=== PATIENT | male | born 1980 | race American Indian/Alaskan Native ===

== ENCOUNTER 2018-05-31 21:55 | Emergency (ER) | payer MEDICARE ==
--- NOTE | 2018-05-31 22:28 | Emergency Department Report ---
ED Psych HPI - General Chief Complaint: Psych Stated Complaint: MH Time Seen by Provider: 05/31/18 22:13 Source: patient Mode of arrival: Ambulatory - History of Present Illness Initial Comments: Mr. Blackmon is a pleasant healthy 37-year-old male with history of schizoaffective disorder who has suicidal ideation. She has the persistent urge to cut himself with broken glass. He states that he is able to resist the urge to harm himself. He desires to be placed at [facility]. He denies other medical problems. He does smoke tobacco. Denies any alcohol or drug use. His mother has history of mental illness. His former psychiatrist Dr. Elliott. Medications include Wellbutrin, lithium, Risperdal. He has not taken these medications in 1 week. He states he does not like how they make him feel. MD Complaint: suicidal ideation -: days(s) (several) Associated Psychiatric Symptoms: suicidal ideation Quality: constant Context: not taking psychiatric Associated Symptoms: denies other symptoms - Related Data Home Medications Medication Instructions Recorded Confirmed Last Taken No Known Home Medications [No 05/31/18 05/31/18 Unknown Reported Home Medications] Allergies Allergy/AdvReac Type Severity Reaction Status Date / Time No Known Allergies Allergy Verified 05/31/18 22:33 ED Review of Systems ROS: Stated complaint: MH Other details as noted in HPI Comment: All other systems reviewed and negative Constitutional: denies: fever, malaise Respiratory: denies: cough Cardiovascular: denies: chest pain ED Past Medical Hx - Past Medical History Previous Medical History?: Yes Hx Psychiatric Treatment: Yes (Schizo affective) - Surgical History Past Surgical History?: No - Social History Smoking Status: Current Every Day Smoker Substance Use Type: Alcohol - Medications Home Medications: Home Medications Medication Instructions Recorded Confirmed Last Taken Type No Known Home Medications [No 05/31/18 05/31/18 Unknown History Reported Home Medications] ED Physical Exam - General Limitations: No Limitations General appearance: alert, in no apparent distress - Head Head exam: Present: atraumatic, normocephalic - Eye Eye exam: Present: normal appearance - ENT ENT exam: Present: mucous membranes moist - Neck Neck exam: Present: normal inspection. Absent: tenderness, meningismus - Respiratory Respiratory exam: Present: normal lung sounds bilaterally. Absent: respiratory distress, wheezes, rales, rhonchi - Cardiovascular Cardiovascular Exam: Present: regular rate, normal rhythm, normal heart sounds. Absent: bradycardia, tachycardia, systolic murmur, diastolic murmur, rubs, gallop - GI/Abdominal GI/Abdominal exam: Present: soft, normal bowel sounds. Absent: distended, tenderness, guarding, rebound - Rectal Rectal exam: Present: deferred - Extremities Exam Extremities exam: Present: normal inspection - Back Exam Back exam: Present: normal inspection - Neurological Exam Neurological exam: Present: alert, oriented X3 - Psychiatric Psychiatric exam: Present: flat affect, other (cooperative pressured speech) - Skin Skin exam: Present: warm, dry, intact, normal color. Absent: rash ED Course Vital Signs 05/31/18 22:01 Temperature 98.7 F Pulse Rate 72 Respiratory 16 Rate Blood Pressure 116/75 O2 Sat by Pulse 100 Oximetry ED Medical Decision Making - Lab Data Result diagrams: 05/31/18 23:04 05/31/18 23:04 Laboratory Last Values WBC 4.1 K/mm3 (4.5-11.0) L 05/31/18 23:04 RBC 4.02 M/mm3 (3.65-5.03) 05/31/18 23:04 Hgb 12.4 gm/dl (11.8-15.2) 05/31/18 23:04 Hct 37.4 % (35.5-45.6) 05/31/18 23:04 MCV 93 fl (84-94) 05/31/18 23:04 MCH 31 pg (28-32) 05/31/18 23:04 MCHC 33 % (32-34) 05/31/18 23:04 RDW 13.8 % (13.2-15.2) 05/31/18 23:04 Plt Count 155 K/mm3 (140-440) 05/31/18 23:04 Sodium 139 mmol/L (137-145) 05/31/18 23:04 Potassium 4.0 mmol/L (3.6-5.0) 05/31/18 23:04 Chloride 105.6 mmol/L (98-107) 05/31/18 23:04 Carbon Dioxide 24 mmol/L (22-30) 05/31/18 23:04 Anion Gap 13 mmol/L 05/31/18 23:04 BUN 18 mg/dL (9-20) 05/31/18 23:04 Creatinine 0.9 mg/dL (0.8-1.5) 05/31/18 23:04 Estimated GFR > 60 ml/min 05/31/18 23:04 BUN/Creatinine Ratio 20 % 05/31/18 23:04 Glucose 105 mg/dL (75-100) H 05/31/18 23:04 Calcium 8.9 mg/dL (8.4-10.2) 05/31/18 23:04 Urine Color Yellow (Yellow) 05/31/18 22:30 Urine Turbidity Clear (Clear) 05/31/18 22:30 Urine pH 6.0 (5.0-7.0) 05/31/18 22:30 Ur Specific [place] 1.027 (1.003-1.030) 05/31/18 22:30 Urine Protein <15 mg/dl mg/dL (Negative) 05/31/18 22:30 Urine Glucose (UA) Neg mg/dL (Negative) 05/31/18 22:30 Urine Ketones Neg mg/dL (Negative) 05/31/18 22:30 Urine Blood Neg (Negative) 05/31/18 22:30 Urine Nitrite Neg (Negative) 05/31/18 22:30 Urine Bilirubin Neg (Negative) 05/31/18 22:30 Urine Urobilinogen 4.0 mg/dL (<2.0) 05/31/18 22:30 Ur Leukocyte Esterase Neg (Negative) 05/31/18 22:30 Urine WBC (Auto) < 1.0 /HPF (0.0-6.0) 05/31/18 22:30 Urine RBC (Auto) 4.0 /HPF (0.0-6.0) 05/31/18 22:30 Urine Mucus Few /HPF 05/31/18 22:30 Urine Opiates Screen Presumptive negative 05/31/18 22:30 Urine Methadone Screen Presumptive negative 05/31/18 22:30 Ur Barbiturates Screen Presumptive negative 05/31/18 22:30 Ur Phencyclidine Scrn Presumptive negative 05/31/18 22:30 Ur Amphetamines Screen Presumptive negative 05/31/18 22:30 U Benzodiazepines Scrn Presumptive negative 05/31/18 22:30 Urine Cocaine Screen Presumptive negative 05/31/18 22:30 U Marijuana (THC) Screen Presumptive negative 05/31/18 22:30 Drugs of Abuse Note Disclamer 05/31/18 22:30 Plasma/Serum Alcohol < 0.01 % (0-0.07) 05/31/18 23:04 - Medical Decision Making Mr. Blackmon is a pleasant gentleman with schizoaffective disorder. He has been noncompliant medications. He has persistent urge to harm himself. Placed on 1013 involuntary hold with appropriate precautions. I have ordered his home medications. Awaiting psychiatric consultation for further recommendations. I have reviewed labs. He is medically clear for psychiatric care. Critical care attestation.: If time is entered above; I have spent that time in minutes in the direct care of this critically ill patient, excluding procedure time. ED Disposition Clinical Impression: Schizoaffective disorder, Suicidal ideation Disposition: DC/TX-70 ANOTHER TYPE [facility]TH[facility]ARE Is pt being admited?: No Does the pt Need Aspirin: No Condition: Stable Referrals: PRIMARY CARE, [Primary Care Provider] - 3-5 Days
[2018-05-31 23:02] LABS: Bilirubin,Urine NEG (Negative); Blood,Urine NEG (Negative); Color,Urine Yellow (Yellow); Mucus,Urine FEW /HPF; Protein,Urine <15 mg/dL mg/dL (Negative); WBC,Urine < 1.0 /HPF (0.0-6.0)
[2018-05-31 23:15] LABS: Amphetamine Screen,Urine PRESUMPTIVE NEGATIVE; Benzodiazepines Screen,Urine PRESUMPTIVE NEGATIVE; Cannabinoid Screen,Urine PRESUMPTIVE NEGATIVE; Cocaine Screen,Urine PRESUMPTIVE NEGATIVE; Methadone Screen,Urine PRESUMPTIVE NEGATIVE; Opiate Screen,Urine PRESUMPTIVE NEGATIVE
[2018-05-31 23:16] LABS: Hematocrit 37.4 % (35.5-45.6); Hemoglobin 12.4 gm/dl (11.8-15.2); Mean Corpuscular HGB Conc 33 % (32-34); Mean Corpuscular Hemoglobin 31 pg (28-32); Mean Corpuscular Volume 93 fl (84-94); Platelet Count 155 K/mm3 (140-440); Red Blood Count 4.02 M/mm3 (3.65-5.03); Red Cell Distribution Width 13.8 % (13.2-15.2)
[2018-05-31 23:28] LABS: BUN/Creatinine Ratio 20; Blood Urea Nitrogen 18 mg/dL (9-20); Calcium 8.9 mg/dL (8.4-10.2); Hemolysis Index 6
[2018-06-01 00:15] LABS: Platelet Estimate Consistent w Auto; RBC Morphology Normal; Total Cells Counted 100
[2018-06-01] MEDS: RisperDAL PO SCH ×3 (01:00→22:05)
[2018-06-01] MEDS: ESKALITH PO SCH ×2 (09:59→22:05)
[2018-06-01] MEDS ORDERED: WELLBUTRIN XL PO SCH (10:00)
--- NOTE | 2018-06-01 12:15 | Consultation ---
History of Present Illness - Reason for Consult Consult date: 06/01/18 Reason for consult: Mental Health Evaluation Requesting physician: CINDY NOVAK - Chief Complaint Chief complaint: "I just came here because" - History of Present Psychiatric Illness 37-year-old AA male presenting to ER for SI's. Per the record, the patient stated that he would cut himself. Today the patient is disorganized and tangent during the assessment. He rambles on about irrelevant topics throughout the interview. He stated that he cut himself recently, but the superficial scar was healed. He did state not sleeping the past couple of days. This patient is a poor historian at this time. No gestures of SI/HI's. Medications and Allergies Allergies Allergy/AdvReac Type Severity Reaction Status Date / Time No Known Allergies Allergy Verified 05/31/18 22:33 Home Medications Medication Instructions Recorded Confirmed Last Taken Type No Known Home Medications [No 05/31/18 05/31/18 Unknown History Reported Home Medications] Active Meds: Active Medications [place] Carbonate (Eskalith) 300 mg PO BID [facility] Last Admin: 06/01/18 09:59 Dose: 300 mg Risperidone (Risperdal) 0.5 mg PO BID [facility] Last Admin: 06/01/18 09:59 Dose: 0.5 mg Past psychiatric history - Past Medical History Past Medical History: other (Unable to obtain) Past Surgical History: Other (Unable to obtain) - past Psychiatric treatment and history psychiatric treatment history: Hx of Mood DO. The patient could not confirm or deny a fam psy hx. - Social History Social history: other (Homeless) Mental Status Exam - Vital signs Last Vital Signs Temp 98.4 F 06/01/18 08:42 Pulse 72 06/01/18 08:42 Resp 16 06/01/18 10:06 BP 107/71 06/01/18 08:42 Pulse Ox 97 06/01/18 10:06 - Exam Narrative exam: MSE: Appearance: disheveled Behavior: regular eye contact Speech: hyper verbal Mood: labile Affect: congruent to mood Thought Process: disorganized, tangential Thought Content: no gestures of SI/HI's Motor Activity: sitting up in the bed Cognition: A/O x3 Insight: poor Judgment: poor Results Result Diagrams: 05/31/18 23:04 05/31/18 23:04 Abnormal lab results 05/31/18 05/31/18 05/31/18 Range/Units 23:04 23:04 23:04 WBC (4.5-11.0) K/mm3 Lymphocytes % (Manual) (13.4-35.0) % Monocytes % (Manual) (0.0-7.3) % Basophils % (Manual) (0.0-1.8) % Seg Neutrophils # Man (1.8-7.7) K/mm3 Glucose 105 H (75-100) mg/dL Salicylates < 0.3 L (2.8-20.0) mg/dL Acetaminophen < 5.0 L (10.0-30.0) ug/mL 05/31/18 Range/Units 23:04 WBC 4.1 L (4.5-11.0) K/mm3 Lymphocytes % (Manual) 44.0 H (13.4-35.0) % Monocytes % (Manual) 10.0 H (0.0-7.3) % Basophils % (Manual) 3.0 H (0.0-1.8) % Seg Neutrophils # Man 1.6 L (1.8-7.7) K/mm3 Glucose (75-100) mg/dL Salicylates (2.8-20.0) mg/dL Acetaminophen (10.0-30.0) ug/mL All other labs normal. Assessment and Plan Assessment and plan: Impression: Unspecified Mood DO with psy features. The patient is experiencing manic symptoms. Today the patient is disorganized and tangent during the assessment. UDS is negative. QTC 468. DDx: R/O Bipolar DO with psychosis, Schizoaffective DO Recommendation/Plan: Continue 1013, Risperdal 0.5 mg Po BID for mood/psychosis, and start [place] 300 mg PO BID for mood. Attempted to discuss metabolic side effects of Risperdal with the patient. Dispo: The patient was referred to inpatient psy services. Will staff with Dr Verdugo.
[2018-06-02] MEDS: ESKALITH PO SCH (10:29)
[2018-06-02] MEDS: RisperDAL PO SCH (10:35)
[2018-06-02 14:10] VITALS: BP 110/67
== END 2018-06-02 14:29 | disposition other institution (70) ==
LOC: ED 21:55 → EEVIPCON 21:55 → ED 06-02 14:29
DX: F25.9 Schizoaffective disorder, unspecified (principal); F17.200 Nicotine dependence, unspecified, uncomplicated
CPT/HCPCS: 36415; 80048; 80178; 80307; 81001; 85007; 85025; 99285; G0480; 80320

== ENCOUNTER 2022-04-21 09:48 | Emergency (ER) | payer MEDICARE ==
[2022-04-21 10:59] VITALS: BP 122/79
[2022-04-21 15:34] LABS: Basophils % (Auto) 0.9 % (0.0-1.8); Eosinophils # (Auto) 0.1 K/mm3 (0.0-0.4); Eosinophils % (Auto) 1.5 % (0.0-4.3); Hematocrit 38.4 % (35.5-45.6); Hemoglobin 12.5 gm/dl (11.8-15.2); Lymphocytes # (Auto) 2.2 K/mm3 (1.2-5.4); Lymphocytes % (Auto) 47.4 % (13.4-35.0); Mean Corpuscular HGB Conc 33 % (32-34); Mean Corpuscular Volume 91 fl (84-94); Monocytes # (Auto) 0.4 K/mm3 (0.0-0.8); Monocytes % (Auto) 7.8 % (0.0-7.3); Platelet Count 271 K/mm3 (140-440); Red Blood Count 4.23 M/mm3 (3.65-5.03); Red Cell Distribution Width 13.2 % (13.2-15.2)
[2022-04-21 15:48] LABS: Blood Urea Nitrogen 4 mg/dL (9-20); Calcium 9.5 mg/dL (8.4-10.2); Hemolysis Index 7
[2022-04-21 15:49] LABS: BUN/Creatinine Ratio 6
--- NOTE | 2022-04-21 16:13 | Cat Scan Report ---
CT CHEST WITH CONTRAST INDICATION / CLINICAL INFORMATION: chest wall abscess extension. TECHNIQUE: Axial CT images were obtained through the chest after IV contrast. All CT scans at this [facility] are performed using CT dose reduction for ALARA by means of automated exposure control. COMPARISON: None available. FINDINGS: HEART: No significant abnormality. CORONARY ARTERY CALCIFICATION: Absent -- None. THORACIC AORTA: No significant abnormality. MEDIASTINUM / NOAH: No significant abnormality. PLEURA: No pleural effusion. No pneumothorax. LUNGS: Upper lobe predominant emphysema. No focal consolidation. ADDITIONAL FINDINGS: Partially imaged thick walled peripherally enhancing collection in the right upp er back soft tissues measures 2.4 x 1.8 cm on image 1 series 2. UPPER ABDOMEN: No significant abnormality. SKELETAL SYSTEM: No significant abnormality. IMPRESSION: 1. Partially imaged right upper back thick walled fluid collection, concerning for abscess. Signer Name: Aime Frazier MD Signed: 04/21/2022 4:09 PM Workstation Name: [id number]
--- NOTE | 2022-04-21 17:05 | Emergency Department Report ---
- General Chief complaint: Wound/Laceration Stated complaint: OPEN WOUND Time Seen by Provider: 04/21/22 13:45 Source: patient Mode of arrival: Ambulatory Limitations: No Limitations - History of Present Illness Initial comments: Patient is a 41-year-old male who is a resident of a local psychiatric facility where he is staying for 2 months. He states that the nurse there has been taking care of wound on his right upper back for about a week and today she thought that she could see bone at the base of his wound so she sent him here. He has been on an unknown antibiotic. No information has been provided. Severity scale (0 -10): 4 Improves with: none Worsens with: none Context: none Associated symptoms: other (None no shortness of breath or fever.) - Related Data Home Medications Medication Instructions Recorded Confirmed Last Taken No Known Home Medications [No 05/31/18 05/31/18 Unknown Reported Home Medications] Allergies Allergy/AdvReac Type Severity Reaction Status Date / Time No Known Allergies Allergy Verified 04/21/22 11:00 Abscess Boil HPI - HPI Chief Complaint: Wound/Laceration Stated Complaint: OPEN WOUND Time Seen by Provider: 04/21/22 13:45 Home Medications: Home Medications Medication Instructions Recorded Confirmed Last Taken No Known Home Medications [No 05/31/18 05/31/18 Unknown Reported Home Medications] Allergies/Adverse Reactions: Allergies Allergy/AdvReac Type Severity Reaction Status Date / Time No Known Allergies Allergy Verified 04/21/22 11:00 ED Review of Systems ROS: Stated complaint: OPEN WOUND Other details as noted in HPI Comment: All other systems reviewed and negative Constitutional: denies: chills, fever Eyes: denies: vision change ENT: denies: throat pain, congestion Respiratory: denies: cough, shortness of breath Cardiovascular: denies: chest pain, palpitations, edema Endocrine: denies: intolerance to cold, intolerance to heat Gastrointestinal: denies: abdominal pain, nausea, vomiting Genitourinary: denies: frequency, hematuria Musculoskeletal: denies: joint swelling, myalgia Skin: as per HPI Neurological: denies: headache, weakness Psychiatric: other (History of schizoaffective disease). denies: anxiety, depression, homicidal thoughts, suicidal thoughts Hematological/Lymphatic: denies: easy bleeding, easy bruising ED Past Medical Hx - Past Medical History Hx Psychiatric Treatment: Yes (Schizo affective) - Social History Smoking Status: Current Every Day Smoker Substance Use Type: Alcohol - Medications Home Medications: Home Medications Medication Instructions Recorded Confirmed Last Taken Type No Known Home Medications [No 05/31/18 05/31/18 Unknown History Reported Home Medications] ED Physical Exam - General Limitations: No Limitations General appearance: alert, in no apparent distress - Head Head exam: Present: atraumatic, normocephalic - Eye Eye exam: Absent: scleral icterus, conjunctival injection - ENT ENT exam: Present: mucous membranes moist - Neck Neck exam: Present: normal inspection, full ROM. Absent: tenderness, meningismus - Respiratory Respiratory exam: Present: normal lung sounds bilaterally. Absent: respiratory distress, wheezes, rales - Cardiovascular Cardiovascular Exam: Present: regular rate, normal rhythm, normal heart sounds - GI/Abdominal GI/Abdominal exam: Present: soft. Absent: distended - Neurological Exam Neurological exam: Present: alert, oriented X3 - Psychiatric Psychiatric exam: Present: flat affect - Skin Skin exam: Present: warm, dry, normal color, other (Right upper back is with a 1 cm open area that has a grayish cystic caseous material with scant purulent drainage no surrounding erythema.) ED Course Vital Signs 04/21/22 10:57 Temperature 98.1 F Pulse Rate 70 Respiratory 18 Rate Blood Pressure 122/79 [Right] O2 Sat by Pulse 100 Oximetry - Reevaluation(s) Reevaluation #1: 04/21/22 17:08 CT scan revealed abscess but no tension into the chest wall. - I & D Right Upper Back Type of Procedure: Simple Blade Size: 11 I & D Procedure: betadine prep, sterile drapes applied, sterile dressing applied, gauze wick placed Progress: Wound was prepped with Betadine and anesthetized with 1% lidocaine without epinephrine. Copious amount of caseous material with slight purulence and foul smell expressed from the wound. Patient tolerated procedure well and a sterile dressing was placed. ED Medical Decision Making - Lab Data Result diagrams: 04/21/22 14:53 04/21/22 14:53 - Radiology Data Radiology results: report reviewed [facility] [address] [id number] Cat Scan Report Signed Patient: VANGIE WOLFE MR#: [id number] : 1980 Acct:[id number] Age/Sex: 41 / M ADM Date: 04/21/22 Loc: ED Attending Dr: Ordering Physician: YOSEF FLORES Date of Service: 04/21/22 Procedure(s): CT chest w con Accession Number(s): [id number] cc: YOSEF FLORES CT CHEST WITH CONTRAST INDICATION / CLINICAL INFORMATION: chest wall abscess extension. TECHNIQUE: Axial CT images were obtained through the chest after IV contrast. All CT scans at this location are performed using CT dose reduction for ALARA by means of automated exposure control. COMPARISON: None available. FINDINGS: HEART: No significant abnormality. CORONARY ARTERY CALCIFICATION: Absent -- None. THORACIC AORTA: No significant abnormality. MEDIASTINUM / NOAH: No significant abnormality. PLEURA: No pleural effusion. No pneumothorax. LUNGS: Upper lobe predominant emphysema. No focal consolidation. ADDITIONAL FINDINGS: Partially imaged thick walled peripherally enhancing collection in the right upper back soft tissues measures 2.4 x 1.8 cm on image 1 series 2. UPPER ABDOMEN: No significant abnormality. SKELETAL SYSTEM: No significant abnormality. IMPRESSION: 1. Partially imaged right upper back thick walled fluid collection, concerning for abscess. Signer Name: Lisandro Navarrete MD Signed: 04/21/2022 4:09 PM Workstation Name: [id number] Transcribed By: JW Dictated By: LISANDRO NAVARRETE MD Electronically Authenticated By: LISANDRO NAVARRETE MD Signed Date/Time: 04/21/22 160 DD/ 1604 TD/TT: Print - Medical Decision Making Abscess partially treated. I&D performed in warm pack to see procedure - Differential Diagnosis Abscess. Rule out extension into the chest wall. Critical care attestation.: If time is entered above; I have spent that time in minutes in the direct care of this critically ill patient, excluding procedure time. ED Disposition Clinical Impression: Abscess of back, Infected cyst of right shoulder, Sebaceous cyst Disposition: [address] [place] [address] Is pt being admited?: No Condition: Stable Instructions: Skin Abscess, Epidermal Cyst, [id number] Additional Instructions: Continue current antibiotics. Packing needs to be removed in 2 days. Surgery follow-up. Referrals: WESLY ARIAS MD [Primary Care Provider] - 3-5 Days OLIVIA ALAS MD [Staff Physician] - 3-5 Days Time of Disposition: 18:05
== END 2022-04-21 18:21 ==
LOC: ED 09:48
DX: L02.212 Cutaneous abscess of back [any part, except buttock and flank] (principal); L72.3 Sebaceous cyst; J43.9 Emphysema, unspecified
CPT/HCPCS: 10060; 36415; 71260; 80048; 85025; 99284; Q9967

== ENCOUNTER 2022-04-23 10:24 | Emergency (ER) | payer MEDICARE ==
[2022-04-23 10:46] VITALS: BP 128/80
== END 2022-04-23 16:45 ==
LOC: ED 10:24
DX: S31.000A Unspecified open wound of lower back and pelvis without penetration into retroperitoneum, initial encounter (principal); Z53.21 Procedure and treatment not carried out due to patient leaving prior to being seen by health care provider; X58.XXXA Exposure to other specified factors, initial encounter; Y93.89 Activity, other specified; Y92.89 Other specified places as the place of occurrence of the external cause; Y99.8 Other external cause status